=== PATIENT | male | born 1985 | race Two or more races ===

== ENCOUNTER 2017-11-20 09:58 | Emergency (ER) | payer BC, OTHER ==
[~2017-11-20] VITALS: Ht 182.9 cm; Wt 75.8 kg
[2017-11-20 10:17] VITALS: BP 130/92
[2017-11-20] MEDS ORDERED: LIDOCAINE-MPF 2%, 2ML ONE ×2 (11:48)
[2017-11-20] MEDS ORDERED: LIDOCAINE 2%, 20ML SQ ONE (12:00)
== END 2017-11-20 12:48 | disposition home or self-care (01) ==
LOC: ED 12:40
DX: L03.116 Cellulitis of left lower limb (principal); L02.416 Cutaneous abscess of left lower limb
CPT/HCPCS: 10060; 99283